=== PATIENT | male | born 1980 | race Caucasian/White ===

== ENCOUNTER 2019-01-30 13:07 | Emergency (ER) | payer BC, OTHER ==
--- NOTE | 2019-01-30 13:58 | Emergency Department Record ---
History of Present Illness - General Chief Complaint: Laceration(s) Stated Complaint: CUT RT HAND BETWEEN KNUCKLE Time Seen by Provider: 01/30/19 13:23 Source: Patient Mode of Arrival: Ambulatory Limitations: No limitations - History of Present Illness Initial Commments: The patient is here due to cutting his R hand at work about an hour ago on a piece of metal. It came across the back of his R hand and cut him thru his glove. He denies any bone pain or numbness. His Td is UTD. Onset/Timin -: Minutes(s) Place: Work Context: Accidental Associated Symptoms: None Treatments Prior to Arrival: Bandage - Related Data Hx Tetanus Toxoid Vaccination: Yes Year of Tetanus Vaccination: 2018 Patient Tetanus UTD (within 5 yrs): Yes Previous Rx's Medication Instructions Recorded Clindamycin HCl [Cleocin HCl] 300 mg PO QID #20 capsule 01/30/19 Allergies Allergy/AdvReac Type Severity Reaction Status Date / Time Penicillins Allergy ANAPHYLAXIS Verified 01/30/19 13:21 Travel Screening - Travel/Exposure Within Last 30 Days Have you traveled within the last 30 days?: No Review of Systems Constitutional: Denies: Chills, Fever Past Medical History - SOCIAL HISTORY Smoking Status: Current every day smoker Alcohol Use: None Drug Use: None - RESPIRATORY Hx Respiratory Disorders: No - CARDIOVASCULAR Hx Cardio Disorders: No - NEURO Hx Neuro Disorders: No - GI Hx GI Disorders: No - Hx Genitourinary Disorders: No - ENDOCRINE Hx Endocrine Disorders: Yes Hx Diabetes: Yes (type 2) - MUSCULOSKELETAL Hx Musculoskeletal Disorders: No - PSYCH Hx Psych Problems: No - HEMATOLOGY/ONCOLOGY Hx Hematology/Oncology Disorders: No Family Medical History Any Significant Family History?: No Physical Exam - General General Appearance: Alert, Cooperative, No acute distress - Extremities Extremities exam: Tenderness (minimal only at the lac site.). negative: Normal inspection (There is a 1.5 cm superficial laceration between the 2nd and 3rd MCP joints over the dorsal R hand. There is no bony tenderness and the fingers have normal ROM with full extension and sensation.), Full ROM, Joint swelling Image of Hand: 1 - Area of superficial lac. Course Vital Signs 01/30/19 13:13 Temperature 98.5 F Pulse Rate 81 Respiratory 18 Rate Blood Pressure 135/85 Pulse Ox 97 - Reevaluation(s) Reevaluation #1: Procedure note: The R hand lac was anesth. with 2 cc's Lido 1%. The wound was lavaged and scrubbed with betadine and sterile saline. The lac was very superficial and not thru the dermis. The lac was then closed with 4 4.0 nylon sutures. There were no complications. 01/30/19 14:07 Disposition Disposition: Discharge Clinical Impression: Laceration of hand Qualifiers: Encounter type: initial encounter Foreign body presence: without foreign body Laterality: right Qualified Code(s): S61.411A - Laceration without foreign body of right hand, initial encounter Disposition: Home, Self-Care Condition: (2) Stable Instructions: Laceration (ED) Additional Instructions: Keep dry for 2 days then wash daily with soap and water with no soaking. Have the sutures removed in 14 days. Take Clindamycin as directed. Return to the ER for any problems or signs of infection. Prescriptions: Clindamycin HCl [Cleocin HCl] 300 mg PO QID #20 capsule Forms: Patient Portal Access Time of Disposition: 14:10 Quality - Quality Measures Quality Measures: N/A - Blood Pressure Screening View Details: Yes Does Patient Have Any of the Following: No Blood Pressure Classification: Pre-Hypertensive BP Reading Systolic Measurement: 135 Diastolic Measurement: 85 Screening for High Blood Pressure: < Pre-Hypertensive BP, F/U Documented > [ [id number]] Pre-Hypertensive Follow-up Interventions: Referral to alternative/primary care provider.
== END 2019-01-30 14:20 | disposition home or self-care (01) ==
LOC: ER 13:07
DX: S61.411A Laceration without foreign body of right hand, initial encounter (principal); W26.8XXA Contact with other sharp object(s), not elsewhere classified, initial encounter; Y99.0 Civilian activity done for income or pay; E11.9 Type 2 diabetes mellitus without complications; F17.210 Nicotine dependence, cigarettes, uncomplicated
CPT/HCPCS: 12001; 99283